=== PATIENT | female | born 1995 ===

== ENCOUNTER 2017-10-15 14:00 | Inpatient (IN) | payer OTHER ==
[~2017-10-15] VITALS: Ht 162.6 cm; Wt 93.0 kg
[2017-11-01] MEDS ORDERED: PRENATAL 19 TA1 EAC1 PO (06:49)
[2017-11-01] MEDS ORDERED: FE C PLUS TABL1 EACH PO (06:51)
[2017-11-03] MEDS ORDERED: KAOPECTATE240 MG PO (11:02)
[2017-11-03] MEDS ORDERED: PREPLUS CA-FE1 EACH PO (11:02)
[2017-11-03] MEDS ORDERED: IBUPROFEN400 MG PO (11:02)
== END 2017-11-03 13:32 | disposition home or self-care (01) | DRG 775 ==
LOC: LDR 10-29 14:00 → OB/GYN 11-01 05:07 → LDR 11-01 05:07 → OB/GYN 11-01 15:34
PROC: 0KQM0ZZ Repair Perineum Muscle, Open Approach (ICD-10-PCS; principal; 2017-11-01)
PROC: 10E0XZZ Delivery of Products of Conception, External Approach (ICD-10-PCS; 2017-11-01)
PROC: 3E033VJ Introduction of Other Hormone into Peripheral Vein, Percutaneous Approach (ICD-10-PCS; 2017-11-01)
PROC: 4A1HXCZ Monitoring of Products of Conception, Cardiac Rate, External Approach (ICD-10-PCS; 2017-11-01)
DX: O70.1 Second degree perineal laceration during delivery (principal); Z37.0 Single live birth; Z3A.40 40 weeks gestation of pregnancy